=== PATIENT | male | born 1960 | race Caucasian/White ===

== ENCOUNTER 2016-12-06 17:18 | Emergency (ER) | payer MEDICAID ==
[~2016-12-06] VITALS: Ht 170.2 cm; Wt 70.0 kg
[~2016-12-06 17:18] MED LIST: DILANTIN; LEVETIRACETAM; METFORMIN; ZONISAMIDE
[2016-12-06 17:21] VITALS: BP 148/98
== END 2016-12-06 18:01 | disposition left against medical advice (07) ==
LOC: ER 17:27
DX: Z53.21 Procedure and treatment not carried out due to patient leaving prior to being seen by health care provider (principal)